=== PATIENT | female | born 1970 | race Caucasian/White ===

== ENCOUNTER → 2021-01-11 | Emergency (ER) | payer OTHER ==
[~2021-01-11] VITALS: Ht 172.7 cm; Wt 108.9 kg
== END | disposition expired ==
LOC: ER 19:03 → EDBD 21:11 → ER 21:11
DX: R40.2431 Glasgow coma scale score 3-8, in the field [EMT or ambulance]; X58.XXXA Exposure to other specified factors, initial encounter; Y93.89 Activity, other specified; Y92.89 Other specified places as the place of occurrence of the external cause; Y99.8 Other external cause status